=== PATIENT | female | born 1935 | race Caucasian/White ===

== ENCOUNTER 2016-11-06 14:35 | Inpatient (IN) | payer MEDICARE, OTHER ==
[~2016-11-06] VITALS: Ht 165.1 cm; Wt 49.0 kg
[2016-11-06 14:54] VITALS: BP 122/79
[2016-11-06 15:30] VITALS: BP 147/87
[2016-11-06] MEDS ORDERED: Metoprolol 5mg/5ml Inj IVP ONE (15:30)
[2016-11-06 15:43] LABS: BASOPHILS % (AUTO) 1.2 % (0.0-2.0); EOSINOPHILS % (AUTO) 2.2 % (0.0-3.0); MEAN CORPUSCULAR HEMOGLOBIN 30.8 PG (27.0-31.0); MEAN CORPUSCULAR HGB CONC 31.4 G/DL (32.0-36.0); MEAN CORPUSCULAR VOLUME 98 FL (80-99); MEAN PLATELET VOLUME 7.6 FL (6.5-10.1); MONOCYTES % (AUTO) 5.6 % (1.0-10.0); PLATELET COUNT 185 K/UL (150-450); RED BLOOD COUNT 3.97 M/UL (4.20-5.40); RED CELL DISTRIBUTION WIDTH 14.9 % (11.6-14.8); WHITE BLOOD COUNT 6.9 K/UL (4.8-10.8)
[2016-11-06 15:46] LABS: APPEARANCE,URINE CLEAR; KETONES,URINE NEGATIVE (NEGATIVE); LEUKOCYTE ESTERASE ,URINE 1+ (NEGATIVE); NITRITE,URINE NEGATIVE (NEGATIVE); PH,URINE 5 (4.5-8.0); PROTEIN,URINE 2+ (NEGATIVE); UROBILINOGEN,URINE NORMAL MG/DL (0.0-1.0)
[2016-11-06 15:50] LABS: TROPONIN I < 0.30 ng/mL (<=0.30)
[2016-11-06 15:53] LABS: ALANINE AMINOTRANSFERASE 78 U/L (3-33); ALBUMIN/GLOBULIN RATIO 1.4 (1.0-2.7); ANION GAP 15 (5-15); ASPARTATE AMINO TRANSFERASE 73 U/L (5-40); CALCIUM 9.2 mg/dL (8.6-10.2); CARBON DIOXIDE 27 mEQ/L (20-30); CHLORIDE 101 mEQ/L (98-107); CHOLESTEROL 113 mg/dL (< 200); CHOLESTEROL/HDL RATIO 2.9 (3.3-4.4); CREATININE 1.5 mg/dL (0.5-0.9); HEMOLYSIS 7; LDL CHOLESTEROL (CALC.) 55 mg/dL (60-99); POTASSIUM 4.5 mEQ/L (3.4-4.9); SODIUM 143 mEQ/L (135-145); TOTAL PROTEIN 6.5 g/dL (6.6-8.7)
[2016-11-06 15:58] LABS: BACTERIA,URINE FEW /HPF; RBC,URINE 0-2 /HPF (0 - 2); SQUAMOUS EPITHELIAL CELL,UR FEW /LPF (NONE/OCC)
[2016-11-06 16:01] LABS: INR 1.1 (0.9-1.1); PROTHROMBIN TIME 10.7 SEC (9.30-11.50)
--- NOTE | 2016-11-06 16:01 | Emergency Room Report ---
History of Present Illness General Chief Complaint: Altered Level of Consciousness Source: Family Member Present Illness HPI Patient is a 81-year-old female brought in by EMS after acute onset of altered level consciousness. Patient noted have a prior history of atrial fibrillation and peptic ulcer disease. She had been noted to have increased difficulty responding as well as confusion with word finding difficulty. She was given aspirin by her daughter. Patient had not been on anticoagulation likely due to recent bleeding from peptic ulcer. She had not been any fever there is no recent trauma noted. Patient had improvement in her mental status by the time she arrived in emergency department. Allergies: Coded Allergies: PENICILLINS (Verified Allergy, Unknown, 11/06/16) Patient History Past Medical History: see triage record Reviewed Nursing Documentation: PMH: Agreed, PSxH: Agreed Nursing Documentation-PMH Hx Cardiac Problems: Yes Hx Hypertension: Yes Hx Asthma: No - chronic kidney disease Hx Gastrointestinal Problems: Yes Hx Cerebrovascular Accident: Yes Review of Systems All Other Systems: negative except mentioned in HPI Physical Exam Vital Signs Date Time Temp Pulse Resp B/P Pulse Ox O2 Delivery O2 Flow Rate FiO2 11/06/16 14:30 98.8 112 16 122/79 97 Room Air Sp02 EP Interpretation: reviewed, normal General Appearance: normal inspection, well appearing, no apparent distress, alert, GCS 15 Head: atraumatic ENT: normal ENT inspection, hearing grossly normal, normal voice Neck: normal inspection, full range of motion, supple, no bony tend Respiratory: normal inspection, lungs clear, normal breath sounds, no respiratory distress, no retraction, no wheezing Cardiovascular #1: regular rate, rhythm, no edema Gastrointestinal: normal inspection, normal bowel sounds, non tender, soft, no guarding, no hernia Genitourinary: no CVA tenderness Musculoskeletal: normal inspection, back normal, normal range of motion Neurologic: normal inspection, alert, oriented x3, responsive, author's agent III-XII nml as tested, speech normal, oriented Psychiatric: normal inspection, judgement/insight normal, mood/affect normal Skin: normal inspection, normal color, no rash Medical Decision Making Diagnostic Impression: Primary Impression: Altered level of consciousness Additional Impression: Transient ischemic attack ER Course Differential diagnosis included but was not limited to ischemic stroke, subarachnoid hemorrhage, hypoglycemia, spinal cord injury, neurodegenerative disorder, urinary tract infection, hypoxemia.Because of complexity of patient's case laboratory testing and imaging studies were ordered.EKG interpreted showed atrial fibrillation with rapid ventricular response with a rate of 125. The QTC was mildly prolonged. Patient was given IV metoprolol with her rapid heartbeat. The due to the patient's prior history of renal disease she was not given digoxin. The CT the head read by radiologist showed atrophic changes without evident acute CVA or hemorrhage . Dr. Juvenal Romero was contacted for inpatient management. Dr. Guo who is the patients primary doctor was contacted for renal consult Laboratory Tests Test 11/06/16 15:16 White Blood Count 6.9 K/UL (4.8-10.8) Red Blood Count 3.97 M/UL (4.20-5.40) L Hemoglobin 12.2 G/DL (12.0-16.0) Hematocrit 39.0 % (37.0-47.0) Mean Corpuscular Volume 98 FL (80-99) Mean Corpuscular Hemoglobin 30.8 PG (27.0-31.0) Mean Corpuscular Hemoglobin Concent 31.4 G/DL (32.0-36.0) L Red Cell Distribution Width 14.9 % (11.6-14.8) H Platelet Count 185 K/UL (150-450) Mean Platelet Volume 7.6 FL (6.5-10.1) Neutrophils (%) (Auto) 83.0 % (45.0-75.0) H Lymphocytes (%) (Auto) 8.0 % (20.0-45.0) L Monocytes (%) (Auto) 5.6 % (1.0-10.0) Eosinophils (%) (Auto) 2.2 % (0.0-3.0) Basophils (%) (Auto) 1.2 % (0.0-2.0) Prothrombin Time Pending Prothrombin Time INR Pending PTT Pending Urine Color Yellow Urine Appearance Clear Urine pH 5 (4.5-8.0) Urine Specific [place] 1.010 (1.005-1.035) Urine Protein 2+ (NEGATIVE) H Urine Glucose (UA) Negative (NEGATIVE) Urine Ketones Negative (NEGATIVE) Urine Occult Blood Negative (NEGATIVE) Urine Nitrite Negative (NEGATIVE) Urine Bilirubin Negative (NEGATIVE) Urine Urobilinogen Normal MG/DL (0.0-1.0) Urine Leukocyte Esterase 1+ (NEGATIVE) H Urine RBC 0-2 /HPF (0 - 2) Urine WBC 2-4 /HPF (0 - 2) Urine Squamous Epithelial Cells Few /LPF (NONE/OCC) Urine Bacteria Few /HPF (NONE) Sodium Level 143 mEQ/L (135-145) Potassium Level 4.5 mEQ/L (3.4-4.9) Chloride Level 101 mEQ/L (98-107) Carbon Dioxide Level 27 mEQ/L (20-30) Anion Gap 15 (5-15) Blood Urea Nitrogen 74 mg/dL (7-23) H Creatinine 1.5 mg/dL (0.5-0.9) H Estimate Glomerular Filtration Rate mL/min (>60) Glucose Level 136 mg/dL (74-106) H Calcium Level 9.2 mg/dL (8.6-10.2) Total Bilirubin 0.5 mg/dL (0.0-1.2) Aspartate Amino Transferase (AST) 73 U/L (5-40) H Alanine Aminotransferase (ALT) 78 U/L (3-33) H Alkaline Phosphatase 168 U/L (35-104) H Troponin I < 0.30 ng/mL (<=0.30) Total Protein 6.5 g/dL (6.6-8.7) L Albumin 3.8 g/dL (3.5-5.2) Globulin 2.7 g/dL Albumin/Globulin Ratio 1.4 (1.0-2.7) Triglycerides Level 95 mg/dL (< 150) Cholesterol Level 113 mg/dL (< 200) LDL Cholesterol 55 mg/dL (60-99) L HDL Cholesterol 39 mg/dL (> 60) Cholesterol/HDL Ratio 2.9 (3.3-4.4) L EKG Diagnostic Results Rate: tachycardiac Rhythm: other - A. fib RVR ST Segments: no acute changes Rhythm Strip Diag. Results EP Interpretation: yes Rhythm: no PVC's, no ectopy Chest X-Ray Diagnostic Results EP Interpretation: Yes Findings: no consolidation, no effusion, no pneumothorax, no acute cardiopulmonary disease Number of Views: 1 Last Vital Signs Date Time Temp Pulse Resp B/P Pulse Ox O2 Delivery O2 Flow Rate FiO2 11/06/16 15:39 114 147/87 11/06/16 14:54 98.8 16 97 Room Air Status: unchanged Disposition: ADMITTED INPATIENT Condition: Serious Referrals: SALOME GUO (PCP) Sha Hobson Nov 06, 2016 16:01
[2016-11-06] MEDS ORDERED: Famotidine 20 MG/ 2ML VIAL IVP ONE (16:30)
[2016-11-06] MEDS ORDERED: Miralax 17gm pkt ORAL PRN (17:30)
[2016-11-06] MEDS ORDERED: DuoNeb 0.5-3(2.5)mg/3ml neb HHN PRN (17:30)
[2016-11-06] MEDS ORDERED: Mylanta II UD 30ml ORAL PRN (17:30)
[2016-11-06] MEDS ORDERED: Nitroglycerin Subl 0.4mg tab (Bottle Of 25) SL PRN (17:30)
[2016-11-06] MEDS ORDERED: Morphine Sulfate 2mg/ml Inj IVP PRN (17:30)
[2016-11-06] MEDS ORDERED: Promethazine/Codeine 5ml UD ORAL PRN (17:30)
[2016-11-06] MEDS ORDERED: LORazepam Inj 2mg/ml 1ml IV PRN (17:30)
--- NOTE | 2016-11-06 17:33 | Consultation ---
History of Present Illness General Date patient seen: Nov 06, 2016 Chief Complaint: Altered Level of Consciousness Referring physician: Dr Romero Reason for Consultation: dyspnea, inpatient management Present Illness HPI 81-year-old female with hx of afib, Gtube, brought in by EMS after acute onset of altered level consciousness. She had been noted to have increased difficulty responding as well as confusion with word finding difficulty. She was given aspirin by her daughter. Patient had not been on anticoagulation likely due to recent bleeding from peptic ulcer. Patient had improvement in her mental status by the time she arrived in emergency department. Currently she is fully awake and wondering when she can go home Allergies: Coded Allergies: PENICILLINS (Verified Allergy, Unknown, 11/06/16) Medication History Miscellaneous Medications Atenolol* (Tenormin*), (Reported) Cyclosporine (Restasis), (Reported) Febuxostat (Uloric), (Reported) Leflunomide (Leflunomide), 20, (Reported) Levothyroxine Sodium* (Levothyroxine Sodium*), (Reported) Lidocaine (Lidocaine), 5, (Reported) Prednisone (Prednisone), 20, (Reported) Patient History Healthcare decision maker Resuscitation status Advanced Directive on File Past Medical/Surgical History Past Medical/Surgical History: (1) Atrial fibrillation (2) HTN (hypertension) (3) CRI (chronic renal insufficiency) Review of Systems All Other Systems: negative except mentioned in HPI Physical Exam General Appearance: WD/WN, no apparent distress Lines, tubes and drains: peripheral, central line HEENT: normocephalic, atraumatic Neck: non-tender, normal alignment Respiratory/Chest: chest wall non-tender, lungs clear Cardiovascular/Chest: normal peripheral pulses, normal rate Abdomen: normal bowel sounds Genitourinary/Rectal: normal genital exam Extremities: normal range of motion Neurologic: braided band assembler II-XII grossly normal Last 24 Hour Vital Signs Date Time Temp Pulse Resp B/P Pulse Ox O2 Delivery O2 Flow Rate FiO2 11/06/16 15:39 114 147/87 11/06/16 15:30 98.6 114 16 147/87 97 Room Air 11/06/16 14:54 98.8 16 122/79 97 Room Air 11/06/16 14:30 98.8 112 16 122/79 97 Room Air Laboratory Tests Test 11/06/16 15:16 White Blood Count 6.9 K/UL (4.8-10.8) Red Blood Count 3.97 M/UL (4.20-5.40) L Hemoglobin 12.2 G/DL (12.0-16.0) Hematocrit 39.0 % (37.0-47.0) Mean Corpuscular Volume 98 FL (80-99) Mean Corpuscular Hemoglobin 30.8 PG (27.0-31.0) Mean Corpuscular Hemoglobin Concent 31.4 G/DL (32.0-36.0) L Red Cell Distribution Width 14.9 % (11.6-14.8) H Platelet Count 185 K/UL (150-450) Mean Platelet Volume 7.6 FL (6.5-10.1) Neutrophils (%) (Auto) 83.0 % (45.0-75.0) H Lymphocytes (%) (Auto) 8.0 % (20.0-45.0) L Monocytes (%) (Auto) 5.6 % (1.0-10.0) Eosinophils (%) (Auto) 2.2 % (0.0-3.0) Basophils (%) (Auto) 1.2 % (0.0-2.0) Prothrombin Time 10.7 SEC (9.30-11.50) Prothromb Time International Ratio 1.1 (0.9-1.1) Activated Partial Thromboplast Time 26 SEC (23-33) Urine Color Yellow Urine Appearance Clear Urine pH 5 (4.5-8.0) Urine Specific [place] 1.010 (1.005-1.035) Urine Protein 2+ (NEGATIVE) H Urine Glucose (UA) Negative (NEGATIVE) Urine Ketones Negative (NEGATIVE) Urine Occult Blood Negative (NEGATIVE) Urine Nitrite Negative (NEGATIVE) Urine Bilirubin Negative (NEGATIVE) Urine Urobilinogen Normal MG/DL (0.0-1.0) Urine Leukocyte Esterase 1+ (NEGATIVE) H Urine RBC 0-2 /HPF (0 - 2) Urine WBC 2-4 /HPF (0 - 2) Urine Squamous Epithelial Cells Few /LPF (NONE/OCC) Urine Bacteria Few /HPF (NONE) Sodium Level 143 mEQ/L (135-145) Potassium Level 4.5 mEQ/L (3.4-4.9) Chloride Level 101 mEQ/L (98-107) Carbon Dioxide Level 27 mEQ/L (20-30) Anion Gap 15 (5-15) Blood Urea Nitrogen 74 mg/dL (7-23) H Creatinine 1.5 mg/dL (0.5-0.9) H Estimat Glomerular Filtration Rate mL/min (>60) Glucose Level 136 mg/dL (74-106) H Calcium Level 9.2 mg/dL (8.6-10.2) Total Bilirubin 0.5 mg/dL (0.0-1.2) Aspartate Amino Transf (AST/SGOT) 73 U/L (5-40) H Alanine Aminotransferase (ALT/SGPT) 78 U/L (3-33) H Alkaline Phosphatase 168 U/L (35-104) H Troponin I < 0.30 ng/mL (<=0.30) Total Protein 6.5 g/dL (6.6-8.7) L Albumin 3.8 g/dL (3.5-5.2) Globulin 2.7 g/dL Albumin/Globulin Ratio 1.4 (1.0-2.7) Triglycerides Level 95 mg/dL (< 150) Cholesterol Level 113 mg/dL (< 200) LDL Cholesterol 55 mg/dL (60-99) L HDL Cholesterol 39 mg/dL (> 60) Cholesterol/HDL Ratio 2.9 (3.3-4.4) L Height (Feet): 5 Height (Inches): 5.00 Weight (Pounds): 115 Assessment/Plan Problem List: (1) Encephalopathy acute ICD Codes: G93.40 - Encephalopathy, unspecified SNOMED: [id number] (2) Transient ischemic attack ICD Codes: G45.9 - Transient cerebral ischemic attack, unspecified SNOMED: 468735583, [id number] Qualifiers: Qualified Codes: G45.9 - Transient cerebral ischemic attack, unspecified (3) Atrial fibrillation ICD Codes: I48.91 - Unspecified atrial fibrillation SNOMED: [id number] Qualifiers: Qualified Codes: I48.2 - Chronic atrial fibrillation (4) HTN (hypertension) ICD Codes: I10 - Essential (primary) hypertension SNOMED: [id number] Qualifiers: Qualified Codes: I10 - Essential (primary) hypertension (5) CRI (chronic renal insufficiency) ICD Codes: N18.9 - Chronic kidney disease, unspecified SNOMED: [id number] Qualifiers: Qualified Codes: N18.3 - Chronic kidney disease, stage 3 (moderate) Assessment/Plan telemetry bed cardiac monitoring carotid doppler, Echo cardiac evaluation pt/ot g-tube feeding BABITA TAVERA Nov 06, 2016 17:33
[2016-11-06] MEDS ORDERED: LIDOCAINE700 M1 (19:47)
[2016-11-06] MEDS ORDERED: RESTASIS1 EACH (19:47)
[2016-11-06] MEDS ORDERED: ULORIC40 MG (19:47)
[2016-11-06] MEDS ORDERED: PREDNISONE20 M1 (19:47)
[2016-11-06] MEDS ORDERED: LEFLUNOMIDE20 MG (19:47)
[2016-11-06] MEDS ORDERED: ATENOLOL50 MG (19:47)
[2016-11-06] MEDS ORDERED: LEVOTHYROXINE88 MCG (19:47)
[2016-11-06] MEDS ORDERED: D5 1/2NS 1,000 ML IV SCH (20:00)
[2016-11-06 20:51] VITALS: BP 141/84
[2016-11-06] MEDS: Heparin 5000 units/ml inj SUBQ SCH (22:16)
[2016-11-07 00:17] VITALS: BP 146/85
[2016-11-07 04:10] VITALS: BP 134/84
[2016-11-07 08:16] VITALS: BP 144/80
[2016-11-07 08:31] LABS: BASOPHILS % (AUTO) 1.5 % (0.0-2.0); EOSINOPHILS % (AUTO) 3.4 % (0.0-3.0); MEAN CORPUSCULAR HEMOGLOBIN 31.3 PG (27.0-31.0); MEAN CORPUSCULAR HGB CONC 32.1 G/DL (32.0-36.0); MEAN CORPUSCULAR VOLUME 97 FL (80-99); MEAN PLATELET VOLUME 6.3 FL (6.5-10.1); MONOCYTES % (AUTO) 13.5 % (1.0-10.0); NEUTROPHILS % (AUTO) 64.6 % (45.0-75.0); PLATELET COUNT 169 K/UL (150-450); RED BLOOD COUNT 3.67 M/UL (4.20-5.40); RED CELL DISTRIBUTION WIDTH 15.2 % (11.6-14.8); WHITE BLOOD COUNT 5.8 K/UL (4.8-10.8)
[2016-11-07 08:37] LABS: PROTHROMBIN TIME 10.1 SEC (9.30-11.50)
[2016-11-07 08:51] LABS: ALANINE AMINOTRANSFERASE 63 U/L (3-33); ALBUMIN/GLOBULIN RATIO 1.3 (1.0-2.7); ANION GAP 17 (5-15); ASPARTATE AMINO TRANSFERASE 55 U/L (5-40); CALCIUM 8.7 mg/dL (8.6-10.2); CARBON DIOXIDE 22 mEQ/L (20-30); CHLORIDE 104 mEQ/L (98-107); CREATININE 1.3 mg/dL (0.5-0.9); HEMOLYSIS 3; POTASSIUM 4.1 mEQ/L (3.4-4.9); SODIUM 143 mEQ/L (135-145); TOTAL PROTEIN 6.1 g/dL (6.6-8.7)
[2016-11-07] MEDS: Heparin 5000 units/ml inj SUBQ SCH (09:00)
[2016-11-07] MEDS ORDERED: PredniSONE 20mg tab ORAL SCH (11:00)
[2016-11-07 12:00] VITALS: BP 135/75
--- NOTE | 2016-11-07 12:31 | Pulmonology Progress Note ---
Assessment/Plan Problems: (1) Encephalopathy acute (2) Transient ischemic attack (3) Atrial fibrillation (4) CRI (chronic renal insufficiency) (5) G-tube site cellulitis (6) HTN (hypertension) Assessment/Plan improving continue to monitor the heart rate chronic afib, rate controlled pt/ot done, Subjective ROS Limited/Unobtainable: No Interval Events: wants to go home HEENT: Repors: no symptoms Respiratory: Reports: no symptoms Cardiovascular: Reports: no symptoms Allergies: Coded Allergies: PENICILLINS (Verified Allergy, Unknown, 11/06/16) Objective Last 24 Hour Vital Signs Date Time Temp Pulse Resp B/P Pulse Ox O2 Delivery O2 Flow Rate FiO2 11/07/16 11:17 106 144/80 11/07/16 08:16 97.2 106 18 144/80 95 Room Air 11/07/16 07:49 99 11/07/16 04:10 98.3 91 19 134/84 96 Room Air 11/07/16 04:00 96 11/07/16 00:17 98.4 119 20 146/85 96 Room Air 11/06/16 23:42 91 11/06/16 20:51 97.5 65 18 141/84 98 Room Air 11/06/16 20:00 97 11/06/16 18:40 98.6 110 16 144/77 97 Room Air 11/06/16 15:39 114 147/87 11/06/16 15:30 98.6 114 16 147/87 97 Room Air 11/06/16 14:54 98.8 16 122/79 97 Room Air 11/06/16 14:30 98.8 112 16 122/79 97 Room Air Intake and Output 11/06/16 11/07/16 19:00 07:00 Intake Total 100 ml 700 ml Output Total 400 ml Balance -300 ml 700 ml Intake Oral 100 ml Free Water 100 ml IV Total 450 ml Tube Feeding 150 ml Output Urine Total 400 ml # Voids 2 # Bowel Movements 1 General Appearance: WD/WN HEENT: normocephalic, anicteric Respiratory/Chest: chest wall non-tender, lungs clear Cardiovascular: normal peripheral pulses, normal rate Abdomen: normal bowel sounds, soft, non tender Extremities: no clubbing Skin: no rash, no lesions Laboratory Tests 11/06/16 15:16: White Blood Count 6.9, Red Blood Count 3.97L, Hemoglobin 12.2, Hematocrit 39.0, Mean Corpuscular Volume 98, Mean Corpuscular Hemoglobin 30.8, Mean Corpuscular Hemoglobin Concent 31.4L, Red Cell Distribution Width 14.9H, Platelet Count 185 , Mean Platelet Volume 7.6, Neutrophils (%) (Auto) 83.0H, Lymphocytes (%) (Auto ) 8.0L, Monocytes (%) (Auto) 5.6, Eosinophils (%) (Auto) 2.2, Basophils (%) ( Auto) 1.2, Prothrombin Time 10.7, Prothromb Time International Ratio 1.1, Activated Partial Thromboplast Time 26, Urine Color Yellow, Urine Appearance Clear, Urine pH 5, Urine Specific [place] 1.010, Urine Protein 2+H, Urine Glucose (UA) Negative, Urine Ketones Negative, Urine Occult Blood Negative, Urine Nitrite Negative, Urine Bilirubin Negative, Urine Urobilinogen Normal, Urine Leukocyte Esterase 1+H, Urine RBC 0-2, Urine WBC 2-4, Urine Squamous Epithelial Cells Few, Urine Bacteria Few, Sodium Level 143, Potassium Level 4.5 , Chloride Level 101, Carbon Dioxide Level 27, Anion Gap 15, Blood Urea Nitrogen 74H, Creatinine 1.5H, Estimat Glomerular Filtration Rate , Glucose Level 136H, Calcium Level 9.2, Total Bilirubin 0.5, Aspartate Amino Transf (AST/ SGOT) 73H, Alanine Aminotransferase (ALT/SGPT) 78H, Alkaline Phosphatase 168H, Troponin I < 0.30, Total Protein 6.5L, Albumin 3.8, Globulin 2.7, Albumin/ Globulin Ratio 1.4, Triglycerides Level 95, Cholesterol Level 113, LDL Cholesterol 55L, HDL Cholesterol 39, Cholesterol/HDL Ratio 2.9L 11/07/16 07:45: White Blood Count 5.8, Red Blood Count 3.67L, Hemoglobin 11.5L, Hematocrit 35.7L , Mean Corpuscular Volume 97, Mean Corpuscular Hemoglobin 31.3H, Mean Corpuscular Hemoglobin Concent 32.1, Red Cell Distribution Width 15.2H, Platelet Count 169, Mean Platelet Volume 6.3L, Neutrophils (%) (Auto) 64.6, Lymphocytes (%) (Auto) 17.0L, Monocytes (%) (Auto) 13.5H, Eosinophils (%) (Auto ) 3.4H, Basophils (%) (Auto) 1.5, Prothrombin Time 10.1, Prothromb Time International Ratio 1.0, Activated Partial Thromboplast Time 25, Sodium Level 143, Potassium Level 4.1, Chloride Level 104, Carbon Dioxide Level 22, Anion Gap 17H, Blood Urea Nitrogen 61H, Creatinine 1.3H, Estimat Glomerular Filtration Rate , Glucose Level 125H, Calcium Level 8.7, Total Bilirubin 0.5, Aspartate Amino Transf (AST/SGOT) 55H, Alanine Aminotransferase (ALT/SGPT) 63H, Alkaline Phosphatase 118H, Total Protein 6.1L, Albumin 3.5, Globulin 2.6, Albumin/Globulin Ratio 1.3, Thyroid Stimulating Hormone (TSH) 1.700 Current Medications Medications (Trade) Dose Ordered Sig/Teresa Route PRN Reason Start Time Stop Time Status Last Admin Dose Admin Acetaminophen (Tylenol) 650 mg Q4H PRN ORAL fever 11/06/16 17:30 12/06/16 17:29 Al Hydroxide/Mg Hydroxide (Mylanta II) 30 ml Q6H PRN ORAL dyspepsia 11/06/16 17:30 12/06/16 17:29 Albuterol/ Ipratropium (DuoNeb 0.5-3(2.5)mg/3ml) 3 ml EVERY 4 HOURS PRN HHN Shortness of Breath 11/06/16 17:30 11/11/16 17:29 Apixaban (Eliquis) 2.5 mg BID ORAL 11/07/16 09:30 12/07/16 09:29 UNV Clonidine HCl (Catapres) 0.1 mg Q4H PRN ORAL For High Blood Pressure 11/06/16 17:30 12/06/16 17:29 Dextrose (Dextrose 50%) STAT PRN IV Hypoglycemia 11/06/16 17:30 12/06/16 17:29 Dextrose/Sodium Chloride (D5 0.45% NS) 1,000 ml @ 50 mls/hr Q20H IV 11/06/16 20:00 12/06/16 19:59 11/06/16 22:13 Heparin Sodium (Porcine) (Heparin 5000 units/ml) 5,000 units EVERY 12 HOURS SUBQ 11/06/16 21:00 12/06/16 20:59 11/06/16 22:16 Levothyroxine Sodium (Synthroid) 88 mcg DAILY@0630 ORAL 11/08/16 06:30 12/08/16 06:29 Lorazepam (Ativan 2mg/ml 1ml) 0.5 mg Q4H PRN IV For Anxiety 11/06/16 17:30 11/13/16 17:29 Metoprolol Succinate (Toprol XL) 50 mg DAILY ORAL 11/08/16 09:00 12/08/16 08:59 Morphine Sulfate (Morphine Sulfate) 1 mg EVERY 4 HOURS PRN IVP For Pain 7-10 11/06/16 17:30 11/13/16 17:29 Nitroglycerin (Ntg) 0.4 mg Q5M X 3 DOSES PRN SL Prn Chest Pain 11/06/16 17:30 12/06/16 17:29 Non-Formulary Medication (Non-Formulary Med) 1 ea DAILY ORAL 11/07/16 09:30 12/07/16 09:29 UNV Non-Formulary Medication (Non-Formulary Med) 1 ea DAILY ORAL 11/07/16 09:30 12/07/16 09:29 UNV Ondansetron HCl (Zofran) 4 mg Q6H PRN IVP Nausea & Vomiting 11/06/16 17:30 12/06/16 17:29 Polyethylene Glycol (Miralax) 17 gm HSPRN PRN ORAL Constipation 11/06/16 17:30 12/06/16 17:29 Prednisone (predniSONE) 20 mg DAILY ORAL 11/07/16 11:00 12/07/16 10:59 11/07/16 11:16 Promethazine HCl/ Codeine (Phenergan with Codeine) 5 ml Q4H PRN ORAL For Cough 11/06/16 17:30 12/06/16 17:29 Temazepam (Restoril) 15 mg HSPRN PRN ORAL Insomnia 11/06/16 17:30 11/13/16 17:29 BABITA TAVERA Nov 07, 2016 12:31
--- NOTE | 2016-11-07 12:43 | Neurology Progress Note ---
Interim History Interim History ROS Limited/Unobtainable: No Objective Physical Exam Last Vital Signs Date Time Temp Pulse Resp B/P Pulse Ox O2 Delivery O2 Flow Rate FiO2 11/07/16 11:17 106 144/80 11/07/16 08:16 97.2 18 95 Room Air Laboratory Tests Test 11/06/16 15:16 11/07/16 07:45 White Blood Count 6.9 K/UL (4.8-10.8) 5.8 K/UL (4.8-10.8) Red Blood Count 3.97 M/UL (4.20-5.40) L 3.67 M/UL (4.20-5.40) L Hemoglobin 12.2 G/DL (12.0-16.0) 11.5 G/DL (12.0-16.0) L Hematocrit 39.0 % (37.0-47.0) 35.7 % (37.0-47.0) L Mean Corpuscular Volume 98 FL (80-99) 97 FL (80-99) Mean Corpuscular Hemoglobin 30.8 PG (27.0-31.0) 31.3 PG (27.0-31.0) H Mean Corpuscular Hemoglobin Concent 31.4 G/DL (32.0-36.0) L 32.1 G/DL (32.0-36.0) Red Cell Distribution Width 14.9 % (11.6-14.8) H 15.2 % (11.6-14.8) H Platelet Count 185 K/UL (150-450) 169 K/UL (150-450) Mean Platelet Volume 7.6 FL (6.5-10.1) 6.3 FL (6.5-10.1) L Neutrophils (%) (Auto) 83.0 % (45.0-75.0) H 64.6 % (45.0-75.0) Lymphocytes (%) (Auto) 8.0 % (20.0-45.0) L 17.0 % (20.0-45.0) L Monocytes (%) (Auto) 5.6 % (1.0-10.0) 13.5 % (1.0-10.0) H Eosinophils (%) (Auto) 2.2 % (0.0-3.0) 3.4 % (0.0-3.0) H Basophils (%) (Auto) 1.2 % (0.0-2.0) 1.5 % (0.0-2.0) Prothrombin Time 10.7 SEC (9.30-11.50) 10.1 SEC (9.30-11.50) Prothromb Time International Ratio 1.1 (0.9-1.1) 1.0 (0.9-1.1) Activated Partial Thromboplast Time 26 SEC (23-33) 25 SEC (23-33) Urine Color Yellow Urine Appearance Clear Urine pH 5 (4.5-8.0) Urine Specific [place] 1.010 (1.005-1.035) Urine Protein 2+ (NEGATIVE) H Urine Glucose (UA) Negative (NEGATIVE) Urine Ketones Negative (NEGATIVE) Urine Occult Blood Negative (NEGATIVE) Urine Nitrite Negative (NEGATIVE) Urine Bilirubin Negative (NEGATIVE) Urine Urobilinogen Normal MG/DL (0.0-1.0) Urine Leukocyte Esterase 1+ (NEGATIVE) H Urine RBC 0-2 /HPF (0 - 2) Urine WBC 2-4 /HPF (0 - 2) Urine Squamous Epithelial Cells Few /LPF (NONE/OCC) Urine Bacteria Few /HPF (NONE) Sodium Level 143 mEQ/L (135-145) 143 mEQ/L (135-145) Potassium Level 4.5 mEQ/L (3.4-4.9) 4.1 mEQ/L (3.4-4.9) Chloride Level 101 mEQ/L (98-107) 104 mEQ/L (98-107) Carbon Dioxide Level 27 mEQ/L (20-30) 22 mEQ/L (20-30) Anion Gap 15 (5-15) 17 (5-15) H Blood Urea Nitrogen 74 mg/dL (7-23) H 61 mg/dL (7-23) H Creatinine 1.5 mg/dL (0.5-0.9) H 1.3 mg/dL (0.5-0.9) H Estimat Glomerular Filtration Rate mL/min (>60) mL/min (>60) Glucose Level 136 mg/dL (74-106) H 125 mg/dL (74-106) H Calcium Level 9.2 mg/dL (8.6-10.2) 8.7 mg/dL (8.6-10.2) Total Bilirubin 0.5 mg/dL (0.0-1.2) 0.5 mg/dL (0.0-1.2) Aspartate Amino Transf (AST/SGOT) 73 U/L (5-40) H 55 U/L (5-40) H Alanine Aminotransferase (ALT/SGPT) 78 U/L (3-33) H 63 U/L (3-33) H Alkaline Phosphatase 168 U/L (35-104) H 118 U/L (35-104) H Troponin I < 0.30 ng/mL (<=0.30) Total Protein 6.5 g/dL (6.6-8.7) L 6.1 g/dL (6.6-8.7) L Albumin 3.8 g/dL (3.5-5.2) 3.5 g/dL (3.5-5.2) Globulin 2.7 g/dL 2.6 g/dL Albumin/Globulin Ratio 1.4 (1.0-2.7) 1.3 (1.0-2.7) Triglycerides Level 95 mg/dL (< 150) Cholesterol Level 113 mg/dL (< 200) LDL Cholesterol 55 mg/dL (60-99) L HDL Cholesterol 39 mg/dL (> 60) Cholesterol/HDL Ratio 2.9 (3.3-4.4) L Thyroid Stimulating Hormone (TSH) 1.700 uIU/mL (0.300-4.500) Impression/Recommendations Problems: (1) Transient ischemic attack (2) Atrial fibrillation (3) HTN (hypertension) (4) CRI (chronic renal insufficiency) Status: unchanged Recommendations #[id number] MIGDALIA TYSON Nov 07, 2016 12:43
--- NOTE | 2016-11-07 14:52 | General Progress Note ---
Progress Note Progress Note [id number] full note dictated SALOME CONWAY Nov 07, 2016 14:52
--- NOTE | 2016-11-07 15:56 | Infectious Diseases Prog Note ---
Assessment/Plan Problems: (1) Wound of right ankle Assessment & Plan: looks chronic, need to rule out underlying osteomylitis, will order an MRI of the right ankle, ESR, and CRP. keep off antibiotics for now (2) UTI (urinary tract infection) Assessment & Plan: will send culture and start ceftriaxone empirically (3) Altered level of consciousness Assessment & Plan: UTI VS TIA , will send urine culture and start ceftriaxon empirically. (4) Transient ischemic attack Assessment & Plan: neurology is following (5) HTN (hypertension) Assessment & Plan: continue meds to keep SBP< 140 Subjective Allergies: Coded Allergies: PENICILLINS (Verified Allergy, Unknown, 11/06/16) Objective Vital Signs Last 24 Hour Vital Signs Date Time Temp Pulse Resp B/P Pulse Ox O2 Delivery O2 Flow Rate FiO2 11/07/16 12:00 97.0 96 18 135/75 95 Room Air 11/07/16 11:17 106 144/80 11/07/16 08:16 97.2 106 18 144/80 95 Room Air 11/07/16 07:49 99 11/07/16 04:10 98.3 91 19 134/84 96 Room Air 11/07/16 04:00 96 11/07/16 00:17 98.4 119 20 146/85 96 Room Air 11/06/16 23:42 91 11/06/16 20:51 97.5 65 18 141/84 98 Room Air 11/06/16 20:00 97 11/06/16 18:40 98.6 110 16 144/77 97 Room Air Height (Feet): 5 Height (Inches): 5.00 Weight (Pounds): 108 Laboratory Tests Test 11/07/16 07:45 White Blood Count 5.8 K/UL (4.8-10.8) Red Blood Count 3.67 M/UL (4.20-5.40) L Hemoglobin 11.5 G/DL (12.0-16.0) L Hematocrit 35.7 % (37.0-47.0) L Mean Corpuscular Volume 97 FL (80-99) Mean Corpuscular Hemoglobin 31.3 PG (27.0-31.0) H Mean Corpuscular Hemoglobin Concent 32.1 G/DL (32.0-36.0) Red Cell Distribution Width 15.2 % (11.6-14.8) H Platelet Count 169 K/UL (150-450) Mean Platelet Volume 6.3 FL (6.5-10.1) L Neutrophils (%) (Auto) 64.6 % (45.0-75.0) Lymphocytes (%) (Auto) 17.0 % (20.0-45.0) L Monocytes (%) (Auto) 13.5 % (1.0-10.0) H Eosinophils (%) (Auto) 3.4 % (0.0-3.0) H Basophils (%) (Auto) 1.5 % (0.0-2.0) Prothrombin Time 10.1 SEC (9.30-11.50) Prothromb Time International Ratio 1.0 (0.9-1.1) Activated Partial Thromboplast Time 25 SEC (23-33) Sodium Level 143 mEQ/L (135-145) Potassium Level 4.1 mEQ/L (3.4-4.9) Chloride Level 104 mEQ/L (98-107) Carbon Dioxide Level 22 mEQ/L (20-30) Anion Gap 17 (5-15) H Blood Urea Nitrogen 61 mg/dL (7-23) H Creatinine 1.3 mg/dL (0.5-0.9) H Estimat Glomerular Filtration Rate mL/min (>60) Glucose Level 125 mg/dL (74-106) H Calcium Level 8.7 mg/dL (8.6-10.2) Total Bilirubin 0.5 mg/dL (0.0-1.2) Aspartate Amino Transf (AST/SGOT) 55 U/L (5-40) H Alanine Aminotransferase (ALT/SGPT) 63 U/L (3-33) H Alkaline Phosphatase 118 U/L (35-104) H Total Protein 6.1 g/dL (6.6-8.7) L Albumin 3.5 g/dL (3.5-5.2) Globulin 2.6 g/dL Albumin/Globulin Ratio 1.3 (1.0-2.7) Thyroid Stimulating Hormone (TSH) 1.700 uIU/mL (0.300-4.500) Current Medications Medications (Trade) Dose Ordered Sig/Teresa Route PRN Reason Start Time Stop Time Status Last Admin Dose Admin Acetaminophen (Tylenol) 650 mg Q4H PRN ORAL fever 11/06/16 17:30 2/16/17 17:29 Al Hydroxide/Mg Hydroxide (Mylanta II) 30 ml Q6H PRN ORAL dyspepsia 11/06/16 17:30 12/06/16 17:29 Albuterol/ Ipratropium (DuoNeb 0.5-3(2.5)mg/3ml) 3 ml EVERY 4 HOURS PRN HHN Shortness of Breath 11/06/16 17:30 11/11/16 17:29 Apixaban (Eliquis) 2.5 mg BID ORAL 11/07/16 09:30 12/07/16 09:29 UNV Clonidine HCl (Catapres) 0.1 mg Q4H PRN ORAL For High Blood Pressure 11/06/16 17:30 12/06/16 17:29 Dextrose (Dextrose 50%) STAT PRN IV Hypoglycemia 11/06/16 17:30 12/06/16 17:29 Heparin Sodium (Porcine) (Heparin 5000 units/ml) 5,000 units EVERY 12 HOURS SUBQ 11/06/16 21:00 12/06/16 20:59 11/06/16 22:16 Levothyroxine Sodium (Synthroid) 88 mcg DAILY@0630 ORAL 11/08/16 06:30 12/08/16 06:29 Lorazepam (Ativan 2mg/ml 1ml) 0.5 mg Q4H PRN IV For Anxiety 11/06/16 17:30 11/13/16 17:29 Metoprolol Succinate (Toprol XL) 50 mg DAILY ORAL 11/08/16 09:00 12/08/16 08:59 Morphine Sulfate (Morphine Sulfate) 1 mg EVERY 4 HOURS PRN IVP For Pain 7-10 11/06/16 17:30 11/13/16 17:29 Nitroglycerin (Ntg) 0.4 mg Q5M X 3 DOSES PRN SL Prn Chest Pain 11/06/16 17:30 12/06/16 17:29 Non-Formulary Medication (Non-Formulary Med) 1 ea DAILY ORAL 11/07/16 09:30 12/07/16 09:29 UNV Non-Formulary Medication (Non-Formulary Med) 1 ea DAILY ORAL 11/07/16 09:30 12/07/16 09:29 UNV Ondansetron HCl (Zofran) 4 mg Q6H PRN IVP Nausea & Vomiting 11/06/16 17:30 12/06/16 17:29 Polyethylene Glycol (Miralax) 17 gm HSPRN PRN ORAL Constipation 11/06/16 17:30 12/06/16 17:29 Prednisone (predniSONE) 10 mg Taper QD ORAL 11/08/16 11:00 11/18/16 10:59 UNV Promethazine HCl/ Codeine (Phenergan with Codeine) 5 ml Q4H PRN ORAL For Cough 11/06/16 17:30 12/06/16 17:29 Temazepam (Restoril) 15 mg HSPRN PRN ORAL Insomnia 11/06/16 17:30 11/13/16 17:29 Johnny Beckwith M.D. Nov 07, 2016 15:56
[2016-11-07 16:00] VITALS: BP 155/95
--- NOTE | 2016-11-07 17:10 | Wound Care Consultation ---
Wound Assessment Wound Assessment #1: Wound Present on Admission: Yes New Wound: No Status Change of Wound: No Wound Location Body Site Modif: right Wound Location Body Site: malleolus/ankle Wound Type: pressure ulcer Flaquita Test: Does not Flaquita Pressure Ulcer Stage: IV/unstageable Wound Thickness: Full Thickness Wound Length: 3.0 Wound Width: 3.0 Wound Depth: 0.4 Percent of Wound [place]/Red: 100 Wound Drainage Description: Serosanguineous Wound Drainage Amount: Moderate Wound Drainage Odor: None/Absent Tissue Surrounding Wound: Indurated Wound General Appearance: Reddened, Well Approximated, Draining Wound Assessment #2: Wound Number: #2 Wound Present on Admission: Yes New Wound: No Status Change of Wound: No Wound Location Body Site Modif: mid Wound Location Body Site: sacral Wound Type: pressure ulcer Flaquita Test: Does not Flauqita Pressure Ulcer Stage: II Wound Thickness: Partial Thickness Wound Length: 3.0 Wound Width: 0.5 Wound Depth: 0.1 Percent of Wound [place]/Red: 100 Wound Drainage Amount: None Wound Drainage Odor: None/Absent Tissue Surrounding Wound: Erythemic Wound General Appearance: Reddened Wound Assessment #3: Wound Number: #3 Wound Present on Admission: Yes New Wound: No Status Change of Wound: No Wound Location Body Site Modif: left Wound Location Body Site: heel Wound Type: pressure ulcer Flaquita Test: Does not [place] Pressure Ulcer Stage: I Wound Length: 3.0 Wound Width: 4.5 Wound Drainage Amount: None Wound Drainage Odor: None/Absent Tissue Surrounding Wound: Erythemic Wound General Appearance: Reddened Wound Assessment #4: Wound Number: #4 New Wound: No Status Change of Wound: No Wound Location Body Site: heel Wound Comment #1 Chronic stage IV pressure ulcer on right malleolus. Pt is scheduled for MRI to r/o osteomyelitis #2 Sacral area stage II pressure ulcer #3 Left heel stage I Recommendation - Right malleolus Stage IV pressure ulcer Cleanse with saline pat dry apply hydrogel to wound bed cover with calcium alginate secure with bordered gauze daily and PRN soiled/dislodged -Sacral stage II pressure ulcer Cleanse with saline pat dry apply Triad cream cover with bordered gauze daily and PRN soiled/dislodged -Left heel stage I pressure ulcer Apply skin barrier film and leave open to air. Observe for skin breakdown and offload both heels by pillow. -Turn and reposition -Optimize nutrition -Assess and f/u for any changes accordingly -Low air loss overlay mattress CARMEN MORGAN RN Nov 07, 2016 17:10
[2016-11-07] MEDS ORDERED: Eliquis 2.5mg tablet ORAL SCH (18:00)
--- NOTE | 2016-11-07 18:55 | Cardiology Progress Note ---
Assessment/Plan Assessment/Plan The patient is seen and examined, full consult note is dictated. Objective Last 24 Hour Vital Signs Date Time Temp Pulse Resp B/P Pulse Ox O2 Delivery O2 Flow Rate FiO2 11/07/16 16:00 97.2 137 20 155/95 96 Room Air 11/07/16 12:00 97.0 96 18 135/75 95 Room Air 11/07/16 11:17 106 144/80 11/07/16 08:16 97.2 106 18 144/80 95 Room Air 11/07/16 07:49 99 11/07/16 04:10 98.3 91 19 134/84 96 Room Air 11/07/16 04:00 96 11/07/16 00:17 98.4 119 20 146/85 96 Room Air 11/06/16 23:42 91 11/06/16 20:51 97.5 65 18 141/84 98 Room Air 11/06/16 20:00 97 Intake and Output 11/06/16 11/07/16 19:00 07:00 Intake Total 100 ml 700 ml Output Total 400 ml Balance -300 ml 700 ml Intake Oral 100 ml Free Water 100 ml IV Total 450 ml Tube Feeding 150 ml Output Urine Total 400 ml # Voids 2 # Bowel Movements 1 Laboratory Tests Test 11/07/16 07:45 White Blood Count 5.8 K/UL (4.8-10.8) Red Blood Count 3.67 M/UL (4.20-5.40) L Hemoglobin 11.5 G/DL (12.0-16.0) L Hematocrit 35.7 % (37.0-47.0) L Mean Corpuscular Volume 97 FL (80-99) Mean Corpuscular Hemoglobin 31.3 PG (27.0-31.0) H Mean Corpuscular Hemoglobin Concent 32.1 G/DL (32.0-36.0) Red Cell Distribution Width 15.2 % (11.6-14.8) H Platelet Count 169 K/UL (150-450) Mean Platelet Volume 6.3 FL (6.5-10.1) L Neutrophils (%) (Auto) 64.6 % (45.0-75.0) Lymphocytes (%) (Auto) 17.0 % (20.0-45.0) L Monocytes (%) (Auto) 13.5 % (1.0-10.0) H Eosinophils (%) (Auto) 3.4 % (0.0-3.0) H Basophils (%) (Auto) 1.5 % (0.0-2.0) Prothrombin Time 10.1 SEC (9.30-11.50) Prothromb Time International Ratio 1.0 (0.9-1.1) Activated Partial Thromboplast Time 25 SEC (23-33) Sodium Level 143 mEQ/L (135-145) Potassium Level 4.1 mEQ/L (3.4-4.9) Chloride Level 104 mEQ/L (98-107) Carbon Dioxide Level 22 mEQ/L (20-30) Anion Gap 17 (5-15) H Blood Urea Nitrogen 61 mg/dL (7-23) H Creatinine 1.3 mg/dL (0.5-0.9) H Estimat Glomerular Filtration Rate mL/min (>60) Glucose Level 125 mg/dL (74-106) H Calcium Level 8.7 mg/dL (8.6-10.2) Total Bilirubin 0.5 mg/dL (0.0-1.2) Aspartate Amino Transf (AST/SGOT) 55 U/L (5-40) H Alanine Aminotransferase (ALT/SGPT) 63 U/L (3-33) H Alkaline Phosphatase 118 U/L (35-104) H Total Protein 6.1 g/dL (6.6-8.7) L Albumin 3.5 g/dL (3.5-5.2) Globulin 2.6 g/dL Albumin/Globulin Ratio 1.3 (1.0-2.7) Thyroid Stimulating Hormone (TSH) 1.700 uIU/mL (0.300-4.500) BRENNA TRUJILLO Nov 07, 2016 18:55
[2016-11-07] MEDS ORDERED: Sterile Water Irrig 1000ml IRRIG ONE (19:38)
--- NOTE | 2016-11-07 21:28 | Consultation ---
DATE OF CONSULTATION: INFECTIOUS DISEASES CONSULTATION CONSULTING PHYSICIAN: Johnny Beckwith M.D. REQUESTING PHYSICIAN: Juvenal Romero D.O. REASON FOR CONSULTATION: Right ankle chronic wound. Rule out infection and urinary tract infection. Recommendation for antibiotics therapy. HISTORY OF PRESENT ILLNESS: The patient is an 81-year-old female, who was brought in by the paramedics to [facility] for altered mental status. The patient was confused and has difficulty responding to verbal and painful stimuli. The patient was given aspirin by her daughter on the way to the hospital and she was found to have urinary tract infection and chronic right ankle wound so I was asked by the primary provider for antibiotics recommendation and further evaluation of her right ankle wound. As of note, the patient is poor historian, cannot provide any history. History was mainly obtained from the medical record. PAST MEDICAL HISTORY: Significant for coronary artery disease, hypertension, GERD and CVA. PAST SURGICAL HISTORY: Unknown. ALLERGIES: She is allergic to penicillin. Unknown reaction. MEDICATIONS: She is on prednisone, Toprol-XL, levothyroxine, apixaban, heparin, DuoNeb, acetaminophen, morphine, polyethylene glycol, lorazepam and temazepam. FAMILY HISTORY: Unable to obtain. PHYSICAL EXAMINATION: VITAL SIGNS: Temperature 97 degrees, pulse 96, respirations 18, blood pressure 135/75, and pulse ox is 95% on room air. GENERAL: This is an elderly female, demented, lying in bed, alert, not in distress. HEENT: Normocephalic and atraumatic. Pupils are both reactive to light equally. Moist oral mucosa. NECK: Supple. No lymphadenopathy. CARDIOVASCULAR: Regular rate and rhythm. No murmur or gallop. LUNGS: Clear bilaterally. No wheezing or rhonchi. ABDOMEN: Soft, nontender, and nondistended. Positive bowel sounds. No hepatosplenomegaly or ascites. EXTREMITIES: She had right ankle chronic wound 2 x 2 cm with clean bordered, stage II. No drainage or foul smelling with mild skin erythema around it. SKIN: She had sacral skin ulcer about stage I not draining any material. LABORATORY DATA: White count 5.8, hemoglobin 11.5, hematocrit 35.7, and platelet count 169,000. BUN of 61, creatinine of 1.3, and glucose of 125. AST of 55 and ALT of 68. Urinalysis showed +2 protein, +1 leukocyte esterase, and few bacteria. IMAGING DATA: Carotid Doppler on 11/07/2016, was normal. ASSESSMENT AND PLAN: 1. Right ankle wound seems to be chronic. Need to rule out underlying osteomyelitis. We will order an MRI of the right ankle, sedimentation rate, and C-reactive protein. We will keep off antibiotics for now until further studies are done. 2. Urinary tract infection. We will send urine culture and start Levaquin empirically since she is allergic to penicillin. 3. Altered mental status. Suspect urinary tract infection versus transient ischemic attack. We will send urine culture. Start ceftriaxone empiric treatment. Neurology is following. 4. Transient ischemic attack. Continue management as per Neurology. 5. Hypertension. Continue blood pressure medications to keep systolic less than 140. Johnny Beckwith M.D. DR: FLORA JOB#: [id number] CC:
--- NOTE | 2016-11-07 21:47 | Consultation ---
DATE OF CONSULTATION: 11/07/2016 REFERRING PHYSICIAN: Juvenal Romero D.O. HISTORY OF PRESENT ILLNESS: The patient is an 81-year-old female seen in neurological consultation to evaluate a presence of transient change in mental status. The patient reportedly had an episode of poorly responding, being confused, and with having some word-finding difficulties, daughter become afraid that this may represent stroke. She gave her aspirin, and paramedics were called to the scene. She was brought to this hospital. Vital signs were stable, the patient was stable, with no described neurological deficit detected, her initial diagnostic studies included chest x-ray with no acute cardiopulmonary disease, CAT scan of the brain revealed no evidence of acute stroke, EKG tachycardia with atrial fibrillation rapid ventricular rate. Carotid duplex study, no hemodynamically significant lesions noted. Laboratory work was obtained revealing CBC study were unremarkable except mild anemia, coagulation panel was normal. Urinalysis 2+ protein, chemistry panel, elevated BUN of 74, creatinine 1.5, elevated AST 73, ALT 78, alkaline phosphatase 168, lipid panel, unremarkable with normal TSH. Since admission until present time, there was no further paroxysmal activities, 2D echocardiogram was obtained revealed a left ventricular ejection fraction of 60% to 65%. Large posterior pleural effusion, no mural thrombi described. There was a mild pulmonary hypertension. PAST MEDICAL HISTORY: The patient has a very poor historian stating that she was recently hospitalized at [facility] for a couple of weeks, "they could not find anything wrong." According to medical records, the patient has a history of chronic renal failure, hypertension, degenerative joint disease, and abnormal gait using walker for ambulation. She has chronic anemia and peptic ulcer disease with bleeding suspected secondary to aspirin. There is no anticoagulation given for atrial fibrillation due to presence of peptic ulcer. ALLERGIES: To penicillin. FAMILY HISTORY: Noncontributory. SOCIAL HISTORY: The patient moved from [facility], lives now with her daughter. Has two caregivers round the clock, no alcohol, no drug abuse, nonsmoker. REVIEW OF SYMPTOMS: The patient is currently stating that she is feeling fairly well. She has no complaints. She had difficulty ambulation, required a walker, but denied headache, dizziness, chest pain, or palpitations. No respiratory problems. Denies generalized numbness, tingling, unaware of having strokes, TIA, or seizures. PHYSICAL EXAMINATION: GENERAL: This is a well-developed, somewhat cachectic, petite lady, not in acute distress, lying comfortably in bed watching TV. VITAL SIGNS: Stable, blood pressure 144/80, heart rate 104, paroxysmal atrial fibrillation. HEENT: Head normocephalic. No evidence of injuries. Eyes, ears, and throat are clear. NECK: Supple. No meningeal signs. MUSCULOSKELETAL: Examination remarkable for arthritic deformities both hands. Peripheral pulses 1+ symmetric. MENTAL STATUS: The patient is alert and oriented to her name, age, place, she is unable to recall the address, but able to name President of [facility], and expressed her opinion on current political events. CRANIAL NERVE II: Pupils both responding to light and accommodation. Extraocular movement intact. No nystagmus. CRANIAL NERVE V: Normal corneal responses. CRANIAL NERVE VII: No facial asymmetry. CRANIAL NERVE VIII: Decreased hearing. CRANIAL NERVES IX THROUGH XII: Tongue is in midline. Symmetric palate elevation. MOTOR EXAMINATION: Able to lift arms and legs against the gravity except limitation in both shoulders due to previous rotator cuff tear. Gait not tested, but reported able to ambulate with a walker. IMPRESSION: 1. This is an 81-year-old female with multiple stroke risk factors presented with a transient event of confusion, disorientation, and word-finding difficulties. This may represent transient ischemic attack. Rule out metabolic encephalopathy and presence of seizure activities. 2. Hypertension. 3. Renal failure. 4. Degenerative joint disease. 5. Abnormal gait, multifactorial. RECOMMENDATION: 1. Cardiac monitoring. 2. Cardiology assessment regarding atrial fibrillation as the main source of possible transient ischemic attack versus stroke. 3. MRI of the brain. 4. Observe for paroxysmal events. 5. PT/OT speech therapy. Thank you for allowing me to see this interesting patient in neurological consultation. Red Hand M.D. DR: FLOR JOB#: [id number] CC:
--- NOTE | 2016-11-07 22:18 | History and Physical Report ---
DATE OF ADMISSION: 11/06/2016 Time: 2:30 p.m. CONSULTANTS: 1. Red Hand M.D. 2. Wallace Mendoza M.D. 3. Sepideh Guo M.D. 4. Gary Hardy M.D. CHIEF COMPLAINT: Possible TIA, weakness, and possible syncope. BRIEF HISTORY: The patient is an 81-year-old female who was at home in the garden and apparently felt dizzy and then possibly passed out, diagnosed with TIA, possible CVA with atrial fibrillation with RVR, transferred to [place] and diagnosed as above, admitted to telemetry for further care. Currently, feeling better in bed. No complaints. REVIEW OF SYSTEMS: No chest pain/shortness of breath. No nausea, vomiting or diarrhea. PAST MEDICAL HISTORY: GI bleed, hypertension, criteria for metabolic encephalopathy. PAST SURGICAL HISTORY: x3. MEDICATIONS: Toprol, Synthroid, prednisone, Eliquis, heparin, dextrose, Tylenol, morphine, and MiraLAX. ALLERGIES: Penicillin. SOCIAL HISTORY: No smoking. No alcohol. No intravenous drug abuse. FAMILY HISTORY: Noncontributory. PHYSICAL EXAMINATION: GENERAL: The patient is currently calm in bed, oriented x2, no acute distress. VITAL SIGNS: Temperature is 97 degrees, pulse 96, respiratory rate 18, and blood pressure 135/75. CARDIOVASCULAR: No murmur. LUNGS: Distant and clear. ABDOMEN: Bowel sounds are positive. Nontender and nondistended. EXTREMITIES: No cyanosis, clubbing, or edema. Slight bruse on bilateral arm. NEUROLOGICAL: The patient moves all extremities and slightly weak. LABORATORY AND DIAGNOSTIC DATA: Hemoglobin 11.5, otherwise CBC is normal. BMP shows BUN and creatinine 61 and 1.3 and glucose 125. TSH 1.7. INR is 1.0. Urinalysis is 2+ protein, 1+ leukocyte esterase. Troponin less than 0.3. ASSESSMENT: 1. Transient ischemic attack. 2. Weakness. 3. Syncope. 4. Atrial fibrillation with rapid ventricular rate. 5. Anemia. 6. History of gastrointestinal bleed. 7. Hypertension. 8. Criteria for metabolic encephalopathy. PLAN: Continue premedications. OT/PT. Dietary evaluation. CBC and BMP in the morning. Antibiotics per Infectious Disease. We will continue to follow this patient. Tropoonin q.8 hours x3. EKG in the morning. Dr. Beckwith, Dr. Hand, Dr. Mendoza, Dr. Guo, and Dr. Hardy to consult. We will continue to follow this patient. Juvenal Romero D.O. DR: BIJU JOB#: [id number] CC:
--- NOTE | 2016-11-08 00:17 | Consultation ---
DATE OF CONSULTATION: 11/07/2016 CARDIOLOGY CONSULTATION: REFERRING PHYSICIAN: Sepideh Guo M.D. REASON FOR CONSULTATION: Management of atrial fibrillation with rapid ventricular response. HISTORY OF PRESENT ILLNESS: The patient is a very pleasant 81-year-old female known to my practice, who presented to the hospital what was reported to be expressive dysphasia as well as altered level of consciousness highly suggestive of a transient ischemic attack. According to the daughter, she was at usual state of health until started to notice increased difficulty responding as well as confusion with some expressive dysphasia and the difficulty in finding words. She was given aspirin and was brought over to the emergency department for further evaluation and management. In the ER, initial blood pressure was 122/79. A 12-lead electrocardiogram revealed atrial fibrillation with rapid ventricular response at rate of 117. Cardiology consultation was made at request of Dr. Guo for evaluation of atrial arrhythmias. The patient's cardiac history significant for history of permanent atrial fibrillation, prior attempt of anticoagulation with Eliquis was not successful due to vaginal bleed and GI bleed due to peptic ulcer disease. After agreement by primary care physician, the patient's daughter and myself we all decided to take care off anticoagulation agent. She also has history of chronic diastolic heart failure due to atrial fibrillation as well as pleural effusion. At the time of my evaluation, she did not have any chest pain, but her ambulation is affected by her generalized weakness. PAST MEDICAL HISTORY: Including, 1. atrial fibrillation on no anticoagulation therapy. 2. History of peptic ulcer disease status post EGD at [facility]. 3. History of failure to thrive status post G-tube placement. 4. History of pleural effusion, bilateral. 5. History of hypothyroidism. 6. History of hypertension. 7. History of rheumatoid arthritis. 8. History of leg ulcers. 9. History of chronic kidney disease. PAST SURGICAL HISTORY: G-tube placement. MEDICATIONS: List of medication at home includes, 1. Prednisone 20 mg p.o. daily. 2. Atenolol 50 mg p.o. twice daily. 3. Levothyroxine 88 mcg p.o. daily. 4. Leflunomide 20 mg p.o. daily. 5. Uloric 40 mg p.o. daily. 6. Lidocaine patch 5% apply to the affected area for 12 hours only. 7. Cyclosporine, the dose of which is unknown. ALLERGIES: Penicillin. SOCIAL HISTORY: Denies any tobacco, alcohol, or illicit drug use. REVIEW OF SYSTEMS: HEENT: Denies any headache, diplopia, or blurred vision. Constitutional: She complains of generalized weakness, but no fever, chills, or night sweats. Cardiovascular: Denies any chest pain. She has got shortness of breath with less than ordinary activities. Denies any PND or orthopnea. She has lower extremity edema. No syncope or palpitation. Pulmonary: Denies any cough, hemoptysis, or wheezing. She has got bilateral effusion in the past. Gastrointestinal: Denies any nausea, vomiting, or diarrhea. She has a G-tube in place. History of peptic ulcer disease. Genitourinary: Denies any hematuria, dysuria, or incontinence. History of chronic kidney disease. Neurology: Complains of dysplasia lack of wording, dificulty in finding words, confusion, but no signs of lateralization. PHYSICAL EXAMINATION: VITAL SIGNS: Blood pressure 122/79, pulse 112, respirations 16, temperature 98.2 degrees Fahrenheit, and O2 saturation 97% on room air. GENERAL: The patient is a very frail and cachectic 81-year-old female, in no apparent respiratory distress. HEENT: Atraumatic and normocephalic. Anicteric. Pupils are equal, round, and reactive to light and accommodation. Extraocular muscles intact. NECK: JVP less than 5 cm. No carotid bruit. Carotid upstrokes 2+ bilaterally. CVS: Normal S1, S2. Regular rate and rhythm. A 2/6 mid systolic murmur left sternal border. PMI is at fourth intercostal space in the midclavicular line. LUNGS: Diminished breath sounds in both bases. ABDOMEN: Soft, nontender, nondistended. No hepatosplenomegaly. Positive G-tube in place. EXTREMITIES: Lower extremity edema about 1 to 2+ with ulceration around the ankles. LABORATORY FINDINGS: Sodium 143, potassium 4.5, chloride 101, bicarb 27, BUN 74, creatinine 1.5, and glucose 136. Calcium is 9.2. Total cholesterol 113, LDL 55, and HDL 39. TSH is 1.7. WBC 6.9, hemoglobin 12.2, hematocrit 39.0, and platelet count 185,000. INR is 1.1. Chest x-ray was not done. A 12-lead electrocardiogram, atrial fibrillation with rapid ventricular response rate of 117, nonspecific ST and T-wave abnormalities, left axis deviation, possible anteroseptal infarct age indeterminate. ASSESSMENT AND PLAN: The patient is a very pleasant 81-year-old female seen in Cardiology consultation at request of Dr. Guo. 1. Atrial fibrillation with rapid ventricular response. We will like to replace atenolol with metoprolol which will be started in the ER of 50 mg daily. We would not recommend digoxin as the patient has of renal failure. The patient was started on Eliquis in view of recent possible transient ischemic attack symptoms. 2. Altered level of consciousness with evidence of dysplasia highly suggestive of transient ischemic attack. In view of atrial fibrillation, the patient's daughter agrees to restart Eliquis at 2.5 mg twice daily. 3. Chronic diastolic congestive heart failure. 4. Left pleural effusion. 5. History of failure to thrive. I would like to thank, Dr. Guo, for allowing me to participate in care of this patient. Wallace Mendoza M.D. DR: Mark JOB#: [id number] CC:
[2016-11-08] MEDS ORDERED: PredniSONE 5mg tab ORAL SCH (11:00)
--- NOTE | 2016-11-08 14:05 | Diagnostic Imaging Report ---
Indication: Open healing wound in the lateral part of the right ankle. Technique: Right ankle/hind foot imaging utilizing multiplanar T1 fast spin-echo and STIR. Comparison: None Findings: There is subcutaneous edema and ulceration noted focally in the lateral malleolus region. Just deep to this the lateral malleolus exhibits mild T2 hyperintense signal with normal T1 signal. The cortex appears intact. Findings are nonspecific for osteomyelitis. Followup is recommended. T1 signal abnormality (which in this case is normal) is much more specific for acute osteomyelitis. The findings could be due to reactive bone marrow edema to the adjacent soft tissue infection. Followup is suggested. Impression: Some T2 hyperintense edema noted within the lateral malleolus adjacent to the area of clinical concern. Findings are relatively nonspecific and could be due to reversible, reactive bone marrow edema or osteomyelitis.
--- NOTE | 2016-11-08 20:10 | Discharge Summary ---
Discharge Summary Hospital Course Date of Admission Nov 06, 2016 at 15:31 Date of Discharge Nov 07, 2016 at 19:39 Admitting Diagnosis transient ischemic attack HPI Celine Garcia is a 81 year old female who was admitted on Nov 06, 2016 at 15:31 for Transient Ischemic Attack Hospital Course [id number] Discharge Discharge Disposition Patient was discharged to SNF/Subacute Facility(03) Discharge Diagnoses: Noemi Moody NP Nov 08, 2016 20:10
--- NOTE | 2016-11-09 04:57 | Discharge Summary 2 SIG ---
DATE OF ADMISSION: 11/06/2016 DATE OF DISCHARGE: 11/07/2016 CONSULTANTS: 1. Wallace Mendoza M.D. 2. Red Hand M.D. 3. Johnny Beckwith M.D. 4. Sepideh Guo M.D. 5. Gary Hardy M.D. BRIEF HOSPITAL COURSE: The patient is an 81-year-old female, who was brought in by EMS for acute onset of altered level of consciousness. The patient was noted to have prior history of atrial fibrillation and peptic ulcer disease, and was noted to have increased difficulty responding as well as confusion with word finding difficulty. She was given aspirin by her daughter and has not been on anticoagulation likely due to recent bleed from peptic ulcer. On arrival to ED, EKG showed atrial fibrillation with rapid ventricular response with QT mildly prolonged. She was given IV metoprolol. Head CT showed atrophy changes without any acute CVA or hemorrhage. On arrival to ED, there was improvement on her mental status. Carotid duplex study showed no hemodynamically significant lesions. A 2D echocardiogram revealed left ventricular ejection fraction of 60% to 65% with a large posterior pleural effusion. No mural thrombi described. The patient was started on Eliquis in view of recent possible transient ischemic attack. Dr. Beckwith was also consulted for evaluation of right ankle chronic wound. Wound care was also rendered as she came in with chronic stage IV pressure ulcer on right malleolus and sacral stage II pressure ulcer, left heel stage I. However, full treatment was not carried out as the patient signed out against medical advice. FINAL DIAGNOSES: 1. Transient ischemic attack. 2. Atrial fibrillation with rapid ventricular response. 3. Anemia. 4. Acute metabolic encephalopathy. 5. Chronic diastolic congestive heart failure. 6. Left pleural effusion. 7. Hypertension. 8. Degenerative joint disease. 9. Sacral stage II pressure ulcer, left heel stage I, chronic stage IV pressure ulcer on right malleolus, present on admission. 10. Noncompliance as the patient signed out against medical advice. Juvenal Romero D.O. I have been assigned to dictate discharge summary on this account and I was not involved in the patient's management. Noemi Moody N.P. DR: EZRA JOB#: [id number] CC: ADDI
--- NOTE | 2016-11-10 17:10 | Diagnostic Imaging Report ---
APPROVED REPORT CPT Code: 54819 Present Symptoms Comments: R/O DVT BILATERAL: Imaging reveals a patent deep venous system bilaterally. There is no evidence of thrombus within the femoral, popliteal or tibial segments. The greater saphenous veins are also within normal limits. Doppler indicates normal spontaneous flow within these segments.
--- NOTE | 2016-11-10 17:10 | Diagnostic Imaging Report ---
APPROVED REPORT CPT Code: 12464 Vascular Symptoms CVA/TIA: CAROTID (BILATERAL) - Imaging reveals no significant plaque within the right and left extracranial carotid arteries. The Doppler spectral flow analysis is within normal limits throughout the extracranial carotid arteries bilaterally. VERTEBRAL- The vertebral arteries are within normal limits.
--- NOTE | 2016-11-11 11:45 | Diagnostic Imaging Report ---
Indication: Altered mental status Technique: Contiguous 5 mm thick transaxial imaging of the head obtained in a Siemens Sensation [address] scanner. Soft tissue and bone windows generated. Total Dose length Product (DLP): [address] Dose Index Volume (CTDIvol): 70.38 mGy Comparison: none Findings: There is moderate prominence of the ventricles, basal cisterns, and cerebral sulci consistent with atrophy. Moderate, nonspecific, white matter hypoattenuation is noted throughout the brain consistent with chronic small vessel disease. There is no midline shift, edema, acute hemorrhage, mass effect, or abnormal extra-axial fluid collections. Bones and extra osseous soft tissues are unremarkable. Impression: No acute intracranial bleed, mass effect or edema. Moderate atrophy of the brain. Evidence of chronic small vessel disease involving white matter tracts. The CT scanner at [facility] is accredited by the [employer] and the scans are performed using protocols designed to limit radiation exposure to as low as reasonably achievable to attain images of sufficient resolution adequate for diagnostic evaluation.
--- NOTE | 2016-12-11 14:09 | Cardiology Report ---
APPROVED REPORT EXAM: Two-dimensional and M-mode echocardiogram with Doppler and color Doppler. INDICATION Left ventricular function M-Mode DIMENSIONS IVSd1.0 (0.7-1.1cm)Left Atrium (MM)3.5 (1.6-4.0cm) LVDd2.9 (3.5-5.6cm)Aortic Root3.2 (2.0-3.7cm) PWd1.0 (0.7-1.1cm)Aortic Cusp Exc.1.6 (1.5-2.0cm) LVDs1.6 (2.5-4.0cm) PWs1.3 cm Normal left ventricular chamber size, systolic function and wall motion. Left ventricular ejection fraction estimated to be 50-55%. No evidence of left ventricular hypertrophy. Large posterior pleural effusion. Mild bi-atrial enlargement by 2D. Mild aortic valve sclerosis with adequate cusp excursion Thickened mitral valve leaflets with normal excursion. Mitral annulus and aortic root calcification. Pulmonic valve is well visualized. Normal tricuspid valve structure. IVC not obtainable due to GI tube. A color flow and spectral Doppler study was performed and revealed: Trace aortic regurgitation. Moderate mitral regurgitation. Left ventricular diastolic dysfunction not obtainable due to A-FIB. Mild tricuspid regurgitation. Tricuspid systolic velocities suggests peak right ventricular systolic pressure of 38 mmHg Consistent with mild pulmonary hypertension.
== END 2016-11-07 19:39 | disposition left against medical advice (07) | DRG 69 ==
LOC: EDBD 14:35 → EMR 14:48 → 2E 15:31 → EDBEDREQ 17:02 → 2E 11-07 01:37
DX: G45.9 Transient cerebral ischemic attack, unspecified (principal); G93.41 Metabolic encephalopathy; J90 Pleural effusion, not elsewhere classified; L89.152 Pressure ulcer of sacral region, stage 2; L89.514 Pressure ulcer of right ankle, stage 4; I50.32 Chronic diastolic (congestive) heart failure; N39.0 Urinary tract infection, site not specified; L89.621 Pressure ulcer of left heel, stage 1; I45.81 Long QT syndrome; D64.9 Anemia, unspecified; Z53.21 Procedure and treatment not carried out due to patient leaving prior to being seen by health care provider; M19.90 Unspecified osteoarthritis, unspecified site; I25.10 Atherosclerotic heart disease of native coronary artery without angina pectoris; K21.9 Gastro-esophageal reflux disease without esophagitis; Z88.0 Allergy status to penicillin; Z93.1 Gastrostomy status; E03.9 Hypothyroidism, unspecified; I12.9 Hypertensive chronic kidney disease with stage 1 through stage 4 chronic kidney disease, or unspecified chronic kidney disease; N18.9 Chronic kidney disease, unspecified; I48.2 Chronic atrial fibrillation
CPT/HCPCS: 36415; 70450; 80053; 80061; 81003; 84443; 84484; 85025; 85610; 85730; 93005; 93306; 93880; 93970